=== PATIENT | female | born 1970 | race African-American/Black ===

== ENCOUNTER 2017-09-14 16:50 | Emergency (ER) | payer MEDICAID ==
[~2017-09-14] VITALS: Ht 152.4 cm; Wt 38.1 kg
[~2017-09-14 16:50] MED LIST: CYPR4TAB; PHEN100C70; PHEN60IN
[2017-09-14 16:56] VITALS: BP 128/70
[2017-09-14] MEDS ORDERED: methylPREDNISolone SOD SUCC 125 MG/2 ML VL IM ONE (18:30)
[2017-09-14] MEDS ORDERED: methylPREDNISolone SOD SUCC 125 MG/2 ML VL ONE (18:41)
== END 2017-09-14 19:47 | disposition home or self-care (01) ==
LOC: ER 16:50
DX: J40 Bronchitis, not specified as acute or chronic (principal); F17.210 Nicotine dependence, cigarettes, uncomplicated
CPT/HCPCS: 71046; 96372; 99284; J2930

== ENCOUNTER 2018-09-18 07:30 | Emergency (ER) | payer MEDICAID ==
[~2018-09-18] VITALS: Ht 149.9 cm; Wt 49.9 kg
[~2018-09-18 07:30] MED LIST changes: -CYPR4TAB; +CYPR4TAB50
[2018-09-18 08:01] VITALS: BP 95/68
[2018-09-18] MEDS ORDERED: cefTRIAXone SOD 1,000 MG VL IM ONE (09:15)
== END 2018-09-18 11:28 | disposition home or self-care (01) ==
LOC: ER 07:30
DX: J02.9 Acute pharyngitis, unspecified (principal); R56.9 Unspecified convulsions; J45.909 Unspecified asthma, uncomplicated; F17.210 Nicotine dependence, cigarettes, uncomplicated; Z76.0 Encounter for issue of repeat prescription
CPT/HCPCS: 96372; 99283; J0696